=== PATIENT | male | born 1970 | race African-American/Black ===

== ENCOUNTER 2025-10-14 08:04 | Emergency (ER) | payer SELFPAY ==
[~2025-10-14] VITALS: Ht 172.7 cm; Wt 94.0 kg
[2025-10-14 08:22] VITALS: O2SAT 98
[2025-10-14] MEDS ORDERED: IBUP-1455 MT (09:09)
[2025-10-14] MEDS ORDERED: CYCL5TAB3 MT (09:11)
[2025-10-14] MEDS ORDERED: P50 MT (09:11)
[2025-10-14 10:42] VITALS: BP 155/97; PULSE 70; RESP 16; TEMP 37; O2SAT 98
== END 2025-10-14 10:45 | disposition home or self-care (01) ==
LOC: ER 09:04
DX: M50.10 Cervical disc disorder with radiculopathy, unspecified cervical region (principal); I10 Essential (primary) hypertension
CPT/HCPCS: 72040; 99283